=== PATIENT | male | born 1965 | race African-American/Black ===

== ENCOUNTER 2016-09-10 23:44 | Observation (INO) | payer MEDICAID, OTHER ==
[~2016-09-10] VITALS: Ht 167.6 cm; Wt 70.9 kg
[~2016-09-10 23:44] MED LIST: BACT800T5 PO; BENA25TA8 PO; MEDR4PAK3 PO
[2016-09-11] VITALS (10 sets, daily range): BP systolic 127–167; BP diastolic 80–97; PULSE 74–100; RESP 16–20; TEMP 96.6–99.5; O2SAT 87–99
[2016-09-11] MEDS ORDERED: TIMO5SOL EACH EYE (00:15)
[2016-09-11] MEDS ORDERED: AMLO10 PO (00:15)
[2016-09-11] MEDS ORDERED: LATA.005%O EACH EYE (00:15)
[2016-09-11] MEDS ORDERED: BACL10TA PO (00:16)
[2016-09-11] MEDS ORDERED: HYDR-3533 PO (00:16)
[2016-09-11] MEDS ORDERED: ONDANSETRON HCL 4 MG/2 ML VIAL IV ONE (00:30)
[2016-09-11] MEDS ORDERED: SODIUM CHLOR 0.9% 1000 ML INJ 1,000 ML IV ONE (00:30)
--- NOTE | 2016-09-11 01:07 | RADRPT ---
EXAM DATE/TIME: 09/11/2016 00:30 [facility] COMPARISON: No previous studies available for comparison. INDICATIONS : Chest apin. MEDICAL HISTORY : None. SURGICAL HISTORY : None. ENCOUNTER: Initial ACUITY: 1 day PAIN SCORE: 0/10 LOCATION: Bilateral chest FINDINGS: Single AP view of the chest. The lungs are clear. Cardiomediastinal silhouette within normal limits. No evidence of pleural effusion or pneumothorax. CONCLUSION: No acute cardiopulmonary disease identified. Harjit Patel MD on September 11, 2016 at 1:05 Board Certified Radiologist. This report was verified electronically.
[2016-09-11 01:17] LABS: AUTOMATED NEUTROPHIL # 0.9 TH/MM3 (1.8-7.7); BASOPHIL # 0.1 TH/MM3 (0-0.2); EOSINOPHIL # 0.1 TH/MM3 (0-0.4); EOSINOPHIL % 1.6 % (0.0-4.0); HEMATOCRIT 41.9 % (39.0-51.0); HEMO FLAGS AUTO DIFF; LYMPH % 57.9 % (9.0-44.0); LYMPHOCYTE # 2.3 TH/MM3 (1.0-4.8); MEAN CORPUSCULAR HEMOGLOBIN 33.8 PG (27.0-34.0); MEAN CORPUSCULAR HGB CONC 33.8 % (32.0-36.0); MONO % 16.1 % (0.0-8.0); NEUT % 22.4 % (16.0-70.0); PLATELET COUNT 101 TH/MM3 (150-450); RED BLOOD COUNT 4.19 MIL/MM3 (4.50-5.90); RED CELL DISTRIBUTION WIDTH 14.5 % (11.6-17.2)
[2016-09-11 01:32] LABS: BLOOD, URINE NEG (NEG); GLUCOSE,URINE NEG (NEG); KETONE, URINE NEG (NEG); MUCUS URINE FEW /lpf (OCC); NITRITE,URINE NEG (NEG); URINE COLOR LIGHT-YELLOW (YELLW/STRAW)
[2016-09-11 01:33] LABS: COMMENT (UR) CULT NOT INDICATED; CULTURE IF INDICATED CULT NOT INDICATED
[2016-09-11 01:37] LABS: ALT (GPT) 337 U/L (12-78); ANION GAP 15 MEQ/L (5-15); AST (GOT) 437 U/L (15-37); BICARBONATE 23.6 MEQ/L (21.0-32.0); BLOOD UREA NITROGEN 5 MG/DL (7-18); CHLORIDE 103 MEQ/L (98-107); GLOMERULAR FILTRATION RATE 110 ML/MIN (>89); POTASSIUM 3.4 MEQ/L (3.5-5.1); SODIUM (NA) 142 MEQ/L (136-145)
[2016-09-11 01:38] LABS: AMPHETAMINE, URINE NEG (NEG); BARBITURATES, URINE NEG (NEG); COCAINE, URINE NEG (NEG)
[2016-09-11 01:39] LABS: ACETAMINOPHEN LESS THAN 2.0 MCG/ML (10.0-30.0); ALKALINE PHOSPHATASE 107 U/L (45-117); TOTAL BILIRUBIN ADULT 0.9 MG/DL (0.2-1.0)
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
[2016-09-11 01:56] LABS: ATYPICAL LYMPHOCYTES 15 % (0-0); BANDS 1 % (0-6); BASOPHILS 1 % (0-2); NEUTROPHIL # MANUAL DIFF 1.2 TH/MM3 (1.8-7.7); POLYS (SEG NEUTROPHILS) 28 % (16-70); WBC DIFF SAMPLE 100
[2016-09-11 01:57] LABS: PLATELET ESTIMATE SMEAR LOW (NORMAL); PLATELET MORPHOLOGY NORMAL (NORMAL); SCAN/DIFF FINAL DIFF MANUAL
[2016-09-11] MEDS ORDERED: THIAMINE INJ 100 MG in SODIUM CHLORIDE 0.9% INJ 100 ML IV ONE (02:00)
[2016-09-11 02:01] LABS: CREATINE KINASE 251 U/L (39-308)
[2016-09-11 02:14] LABS: CKMB 0.7 NG/ML (0.5-3.6)
--- NOTE | 2016-09-11 02:25 | RADRPT ---
EXAM DATE/TIME: 09/11/2016 02:12 [facility] COMPARISON: No previous studies available for comparison. INDICATIONS : Syncope RADIATION DOSE: 36.13 CTDIvol (mGy) MEDICAL HISTORY : Hypertension. SURGICAL HISTORY : None. ENCOUNTER: Initial ACUITY: 1 day PAIN SCALE: 0/10 LOCATION: cranial TECHNIQUE: Multiple contiguous axial images were obtained of the head. Using automated exposure control and adj ustment of the mA and/or kV according to patient size, radiation dose was kept as low as reasonably a chievable to obtain optimal diagnostic quality images. FINDINGS: CEREBRUM: The ventricles are normal for age. No evidence of midline shift, mass lesion, hemorrhage or acute in farction. No extra-axial fluid collections are seen. POSTERIOR FOSSA: The cerebellum and brainstem are intact. The 4th ventricle is midline. The cerebellopontine angle i s unremarkable. EXTRACRANIAL: The visualized portion of the orbits is intact. SKULL: The calvaria is intact. No evidence of skull fracture. CONCLUSION: No acute intracranial findings. Harjit Patel MD on September 11, 2016 at 2:17 Board Certified Radiologist. This report was verified electronically.
[2016-09-11] MEDS ORDERED: ONDANSETRON HCL 4 MG/2 ML VIAL IVP PRN (03:00)
[2016-09-11] MEDS ORDERED: SODIUM CHLORIDE 0.9% FLUSH 5 ML FLUSH FLUSH PRN (03:00)
[2016-09-11] MEDS ORDERED: NALOXONE HCL 0.4 MG/ML AMP IV PRN (03:00)
[2016-09-11] MEDS ORDERED: ACETAMINOPHEN 325 MG TAB PO PRN (03:00)
[2016-09-11] MEDS ORDERED: cloNIDine HCL 0.1 MG TAB PO PRN (07:30)
[2016-09-11] MEDS ORDERED: LORazepam 2 MG/ML VIAL IV PUSH PRN ×3 (07:30→08:30)
[2016-09-11] MEDS ORDERED: LORazepam 2 MG TAB PO PRN (07:30)
[2016-09-11] MEDS ORDERED: FLUMAZENIL 0.5 MG/5 ML VIAL IV PUSH PRN (07:30)
[2016-09-11] MEDS ORDERED: POTASSIUM CHLORIDE 10 MEQ CONTROLLED RELEASE TAB PO ONE (09:00)
[2016-09-11] MEDS: SODIUM CHLORIDE 0.9% FLUSH 5 ML FLUSH FLUSH SCH ×2 (09:09→21:00)
[2016-09-11] MEDS: DOCUSATE SODIUM 100 MG CAP PO SCH ×2 (09:09→21:13)
[2016-09-11] MEDS: FOLIC ACID 1 MG TAB PO SCH (09:09)
[2016-09-11] MEDS: NS + KCL 20 MEQ INJ 1,000 ML IV SCH ×2 (09:10→21:14)
--- NOTE | 2016-09-11 09:28 | HHI.HP ---
HPI Service [facility] Primary Care Physician No Primary Care Physician Admission Diagnosis Syncope Diagnoses: Chief Complaint: Syncope Travel History International Travel<30 Days: No Contact w/Intl Traveler <30 Da: No Traveled to Known Affected Are: No History of Present Illness 51-year-old male with past medical history of HTN, glaucoma, chronic back pain who presented after syncopal episode. The patient states that after dinner yesterday he began sweating, and lost consciousness. He remembers coming back to when the paramedics had arrived. He denies feeling any dizziness, weakness, nausea, pain. He does have occasional headaches, states these are chronic when it rains. He has been out of his blood pressure medication for the past few weeks. He does drink about six 24 ounce beers daily. He states he had previously been on [place] for back pain, but has been off of that. He denies any other substance use. He was incontinent of stool and urine during the syncopal episode. His sister did pass away last week and he has been sad since then, but denies any suicidal ideation. No abdominal pain. Review of Systems Except as stated in HPI: all other systems reviewed are Neg Past Family Social History Past Medical History Hypertension Glaucoma Degenerative disc disease/chronic back pain Past Surgical History None Reported Medications Baclofen 10 Mg Tab 10 Mg PO TID Xalatan Opth Drops (Latanoprost) 0.005% Drops 1 Drop EACH EYE HS Timolol Opth Drops 0.25 % Soln 1 Drop EACH EYE BID Norvasc (Amlodipine Besylate) 10 Mg Tab 10 Mg PO DAILY Allergies: Coded Allergies: Codeine (Verified Allergy, Severe, 09/11/16) RASH Penicillin (Verified Allergy, Intermediate, Rash, 09/11/16) Active Ordered Medications Current Medications Medications (Trade) Dose Ordered Sig/Jose Route Start Time Stop Time Status Last Admin (NS Flush) 2 ml UNSCH PRN FLUSH 09/11/16 03:00 (NS Flush) 2 ml BID FLUSH 09/11/16 09:00 09/11/16 09:09 (Tylenol) 650 mg Q4H PRN PO 09/11/16 03:00 (Zofran Inj) 4 mg Q6H PRN IVP 09/11/16 03:00 (Colace) 100 mg Q12HR PO 09/11/16 09:00 09/11/16 09:09 Naloxone HCl 0.4 mg 0.4 mg UNSCH PRN IV 09/11/16 03:00 (NS + KCl 20 Meq Inj) 1,000 ml @ 84 mls/hr [id number] IV 09/11/16 08:00 09/11/16 09:10 (Folate) 1 mg DAILY PO 09/11/16 09:00 09/16/16 08:59 09/11/16 09:09 (Vitamin B1) 100 mg DAILY PO 09/12/16 09:00 (Theragran M Tab) 1 tab DAILY PO 09/11/16 09:00 09/16/16 08:59 (Catapres) 0.1 mg Q6H PRN PO 09/11/16 07:30 (Romazicon Inj) 0.2 mg Q1M PRN IV PUSH 09/11/16 07:30 (Ativan) 1 mg Q4H PRN PO 09/11/16 07:30 (Ativan) 2 mg Q2H PRN PO 09/11/16 07:30 (Ativan Inj) 2 mg Q1H PRN IV PUSH 09/11/16 07:30 (Ativan Inj) 2 mg Q15M PRN IV PUSH 09/11/16 07:30 (Ativan Inj) 1 mg Q6H PRN IV PUSH 09/11/16 08:30 Family History Mother had glaucoma Social History Daily drinking Smokes 12 cigarettes a day Denies any drug abuse Does plaster and stucco work Physical Exam Vital Signs Vital Signs Date Time Temp Pulse Resp B/P Pulse Ox O2 Delivery O2 Flow Rate FiO2 09/11/16 09:05 79 18 163/97 97 Room Air 09/11/16 05:24 20 99 09/11/16 05:23 82 20 127/80 99 09/11/16 00:07 98.1 74 16 166/90 95 Room Air 09/11/16 00:02 166/90 Physical Exam GENERAL: Well-developed well-nourished. In no acute distress. SKIN: Warm and dry. No lesions noted. HEENT: Normocephalic. Pupils equal and round. Mucous membranes pink and moist. CARDIOVASCULAR: Regular rate and rhythm. No murmur appreciated. RESPIRATORY: No accessory muscle use. Clear to auscultation. Breath sounds equal bilaterally. GASTROINTESTINAL: Abdomen soft, non-tender, nondistended. Bowel sounds x4. MUSCULOSKELETAL: No obvious deformities. No clubbing or cyanosis. No edema. NEUROLOGICAL: Awake and alert. No focal neurological deficits. Moves upper and lower extremities spontaneously. Normal speech. PSYCHIATRIC: Appropriate mood and affect; insight and judgment normal. Denies SI. Laboratory Laboratory Tests Test 09/11/16 09/11/16 01:00 01:05 White Blood Count 4.0 Red Blood Count 4.19 Hemoglobin 14.2 Hematocrit 41.9 Mean Corpuscular Volume 100.0 Mean Corpuscular Hemoglobin 33.8 Mean Corpuscular Hemoglobin 33.8 Concent Red Cell Distribution Width 14.5 Platelet Count 101 Mean Platelet Volume 8.7 Neutrophils (%) (Auto) 22.4 Lymphocytes (%) (Auto) 57.9 Monocytes (%) (Auto) 16.1 Eosinophils (%) (Auto) 1.6 Basophils (%) (Auto) 2.0 Neutrophils # (Auto) 0.9 Lymphocytes # (Auto) 2.3 Monocytes # (Auto) 0.6 Eosinophils # (Auto) 0.1 Basophils # (Auto) 0.1 CBC Comment AUTO DIFF Differential Total Cells 100 Counted Neutrophils % (Manual) 28 Band Neutrophils % 1 Lymphocytes % 44 Monocytes % 11 Basophils % 1 Neutrophils # (Manual) 1.2 Differential Comment FINAL DIFF MANUAL Atypical Lymphocytes 15 Platelet Estimate LOW Platelet Morphology Comment NORMAL Sodium Level 142 Potassium Level 3.4 Chloride Level 103 Carbon Dioxide Level 23.6 Anion Gap 15 Blood Urea Nitrogen 5 Creatinine 0.88 Estimat Glomerular Filtration 110 Rate Random Glucose 110 Calcium Level 8.5 Total Bilirubin 0.9 Aspartate Amino Transf 437 (AST/SGOT) Alanine Aminotransferase 337 (ALT/SGPT) Alkaline Phosphatase 107 Total Creatine Kinase 251 Creatine Kinase MB 0.7 Troponin I LESS THAN 0.02 B-Type Natriuretic Peptide 5 Total Protein 7.5 Albumin 3.9 Lipase 717 Salicylates Level 2.4 Acetaminophen Level LESS THAN 2.0 Ethyl Alcohol Level 359 Urine Color LIGHT-YELLOW Urine Turbidity CLEAR Urine pH 6.0 Urine Specific [place] 1.006 Urine Protein NEG Urine Glucose (UA) NEG Urine Ketones NEG Urine Occult Blood NEG Urine Nitrite NEG Urine Bilirubin NEG Urine Urobilinogen LESS THAN 2.0 Urine Leukocyte Esterase NEG Urine RBC LESS THAN 1 Urine WBC LESS THAN 1 Urine Mucus FEW Microscopic Urinalysis Comment CULT NOT INDICATED Urine Opiates Screen NEG Urine Barbiturates Screen NEG Urine Amphetamines Screen NEG Urine Benzodiazepines Screen NEG Urine Cocaine Screen NEG Urine Cannabinoids Screen NEG Result Diagram: 09/11/16 0100 09/11/16 0100 Imaging Last Impressions Head CT 09/11/16 0134 Signed Impressions: Service Date/Time: Sunday, September 11, 2016 02:12 - CONCLUSION: No acute intracranial findings. Harjit Patel MD Chest X-Ray 09/11/16 0021 Signed Impressions: Service Date/Time: Sunday, September 11, 2016 00:30 - CONCLUSION: No acute cardiopulmonary disease identified. Harjit Patel MD Assessment and Plan Assessment and Plan 51-year-old male with past medical history of HTN, glaucoma, chronic back pain who presented after syncopal episode Syncope: Alcohol level 359 at admission, and should definitely have caused/ contributed to his syncopal episode. Rule out other underlying medical etiologies. EKG reviewed, NSR. Head CT unremarkable. Check serial cardiac enzymes. Check EEG with incontinence. Check echocardiogram. IVF. Monitor on telemetry. Narcotic Withdrawal? Hypertension: Uncontrolled. Resume previous dose of amlodipine. Clonidine as needed. Monitor. Alcohol abuse: Daily use. LFTs elevated and mild thrombocytopenia. Counseled on cessation importance of outpatient follow-up. CIWA protocol with rally pack. Seizure precautions. Elevated lipase: Probably chronic from alcohol as above. No complaints of abdominal pain. Follow-up level. Hypokalemia: Replace orally and by IV supplement. Check magnesium level. Glaucoma: Chronic, stable. Resume home eyedrops. DVT prophylaxis: SCDs Written by Palmer Chaudhry, acting as scribe for Dr. Stoner on 09/11/16 at 09:27. All or portions of this note were transcribed by scribe []. I, Dr. Adithya Stoner personally performed the history, physical exam, and medical decision making; and confirmed the accuracy of the information in the transcribed note. Authenticated by Dr. Adithya Stoner on 09/11/16 at 15:10. Discussed Condition With Patient, ED Palmer Villasenor Sep 11, 2016 09:28 Adithya Stoner MD Sep 11, 2016 15:10
[2016-09-11] MEDS: MULTIVITAMINS/MINERALS THERAPEUTIC TAB PO SCH (09:40)
[2016-09-11] MEDS: LORazepam 1 MG TAB PO PRN ×3 (12:02→22:24)
[2016-09-11 15:22] LABS: MAGNESIUM 1.7 MG/DL (1.5-2.5)
[2016-09-11 15:25] LABS: CREATINE KINASE 189 U/L (39-308)
--- NOTE | 2016-09-11 17:55 | EC ---
Study Study Date:09/11/2016 STUDY CONCLUSIONS SUMMARY LEFT VENTRICLE: The cavity size was normal. Wall thickness was normal. Systolic function was normal. The estimated ejection fraction was 60%. Wall motion was normal; there were no regional wall motion abnormalities. If LV function is below 40, please consider prescribing an ACEI or ARB or document rationale for non-use. PROCEDURE DATA STUDY STATUS: Elective. Procedure: Transthoracic echocardiography. Image quality was good. Scanning was performed from the parasternal, apical, and subcostal acoustic windows. Study completion: The patient tolerated the procedure well. Transthoracic echocardiography. M-mode, complete 2D, complete spectral Doppler, and color Doppler. Height: Height: 66in. Weight: Weight: 155.7lb. Body mass index: BMI: 25.2kg/m^2. Body surface area: BSA: 1.8m^2. Patient status: Inpatient. CARDIAC ANATOMY LEFT VENTRICLE: The cavity size was normal. Wall thickness was normal. Systolic function was normal. The estimated ejection fraction was 60%. Wall motion was normal; there were no regional wall motion abnormalities. AORTIC VALVE: Trileaflet; normal thickness leaflets. Doppler: Transvalvular velocity was within the normal range. There was no stenosis. No regurgitation. Valve area: 2.17cm^2(VTI). Indexed valve area: 1.21cm^2/m^2 (VTI). Valve area: 1.8cm^2 (Vmax). Indexed valve area: 1cm^2/m^2 (Vmax). Mean gradient: 3mm Hg (S). AORTA: Aortic root: The aortic root was normal in size. MITRAL VALVE: Structurally normal valve. Doppler: Transvalvular velocity was within the normal range. There was no evidence for stenosis. Trace regurgitation. LEFT ATRIUM: The atrium was normal in size. RIGHT VENTRICLE: The cavity size was normal. Wall thickness was normal. PULMONIC VALVE: Doppler: Transvalvular velocity was within the normal range. There was no evidence for stenosis. No regurgitation. TRICUSPID VALVE: Structurally normal valve. Doppler: Transvalvular velocity was within the normal range. Trace regurgitation. PULMONARY ARTERY: The main pulmonary artery was normal-sized. Systolic pressure was within the normal range. RIGHT ATRIUM: The atrium was normal in size. PERICARDIUM: There was no pericardial effusion. SYSTEMIC VEINS: Inferior vena cava: The vessel was normal in size. Patient weight: 155.7lb _Ejection fraction:_ 65-75% _Fractional shortening:_ 32% up to 5Kg 5-11.5Kg 11.6-22.9Kg 23-45Kg 45-57Kg Aortic Root 7-13 <17 13-22 17-27 17-27 LA diam 6-13 <23 24-38 33-47 37-40 RVID 10-17 7-15 7-15 7-18 8-17 LVIDd 12-22 <32 24-38 33-47 37-40 LVPW 2-4 3-6 5-7 6-8 7-8 IVS 2-4 3-6 5-7 6-8 7-8 BASIC MEASUREMENTS ADULT NORMAL Left ventricle LV internal dimension, ED, chordal 50.9 mm 43-52 level, PLAX LV internal dimension, ES, chordal 34.8 mm 23-38 level, PLAX Fractional shortening, chordal level, 32 % >29 PLAX LV posterior wall thickness, ED 8.89 mm IVS/LVPW ratio, ED 1.01 <1.3 Ventricular septum Septal thickness, ED 8.96 mm Aortic valve Leaflet separation 23 mm 15-26 Aorta Root diameter, ED 29 mm Left atrium Anterior-posterior dimension 36 mm Anterior-posterior dimension index 2 cm/m^2 <2.2 BASIC MEASUREMENTS ADULT NORMAL Aortic valve Leaflet separation 23 mm 15-26 DOPPLER MEASUREMENTS ADULT NORMAL Main pulmonary artery Pressure, S 30 mm Hg =30 Aortic valve Peak velocity, S 127 cm/s Mean velocity, S 84.5 cm/s VTI, S 20.7 cm Mean gradient, S 3 mm Hg Valve area, VTI 2.17 cm^2 Valve area index, VTI 1.21 cm^2/m^2 Valve area, Vmax 1.8 cm^2 Valve area index, Vmax 1 cm^2/m^2 Mitral valve Peak E-wave velocity 48.9 cm/s Peak A-wave velocity 51.3 cm/s Deceleration time *232 ms 150-230 Peak E/A ratio 1 Tricuspid valve Regurgitant peak velocity 258 cm/s Peak RV-RA gradient, S 27 mm Hg Maximal regurgitant velocity 258 cm/s Systemic veins Estimated CVP 5 mm Hg Right ventricle RV pressure, S *32 mm Hg <30 Pulmonic valve Peak velocity, S 63.2 cm/s LEGEND: Mean values are shown as u=mean value. Asterisk (*) sotelo values outside specified normal range. Prepared and signed by Odalys Street [id number]
--- NOTE | 2016-09-11 19:53 | EKG ---
Date Performed: 09/11/2016 Time Performed: 01:57:03 PTAGE: 51 years EKG: Sinus rhythm POSSIBLE LEFT ATRIAL ENLARGEMENT POSSIBLE LEFT VENTRICULAR HYPERTROPHY ABNORMAL ECG NO PREVIOUS TRACING DOCTOR: Odalys Srteet Interpretating Date/Time 09/11/2016 19:52:21
--- NOTE | 2016-09-11 19:55 | MG ---
cc: YAMILETH COE M.D. Lab No: Date: 09/11/2016 Age: Sex: M Race: REQUESTING PHYSICIAN Dr. Chaudhry. An EEG was obtained on this 51-year-old patient with history of decreased responsiveness, apparently in some relationship to alcohol. MEDICATIONS Vitamins. DESCRIPTION The patient is awake and asleep. This EEG shows background of 7-8 per second activity in the central and posterior head regions. There are beta rhythms diffusely. Photic stimulation disclosed no significant change. There are some sharp waves bilaterally but no paroxysmal discharge. The patient seems mostly awake. Hyperventilation disclosed no significant changes. Later on the patient drowses. The tracing remains symmetrical. Photic stimulation was unremarkable. INTERPRETATION Mildly abnormal EEG because of mild intermixed slowing suggesting a mild diffuse disturbance of cerebral function but no epileptiform features present. MD AMANDA Bowles/KK /7:43 PM /7:51 PM
[2016-09-11] MEDS: TIMOLOL MALEATE 0.25% OPHT SOLN 5 ML BTL EACH EYE SCH (21:00)
[2016-09-11] MEDS ORDERED: LATANOPROST 0.005% OPHT SOLN 2.5 ML BTL EACH EYE SCH (21:00)
[2016-09-12 02:17] VITALS: PULSE 76
[2016-09-12 04:18] VITALS: BP 156/85; PULSE 74; RESP 20; TEMP 98.4; O2SAT 98
[2016-09-12 06:53] LABS: AUTOMATED NEUTROPHIL # 1.9 TH/MM3 (1.8-7.7); BASOPHIL # 0.1 TH/MM3 (0-0.2); BASOPHIL % 2.2 % (0.0-2.0); EOSINOPHIL # 0.1 TH/MM3 (0-0.4); HEMATOCRIT 42.3 % (39.0-51.0); LYMPH % 32.6 % (9.0-44.0); LYMPHOCYTE # 1.3 TH/MM3 (1.0-4.8); MEAN CORPUSCULAR HEMOGLOBIN 33.7 PG (27.0-34.0); MEAN CORPUSCULAR HGB CONC 34.3 % (32.0-36.0); MONO % 16.5 % (0.0-8.0); NEUT % 46.7 % (16.0-70.0); PLATELET COUNT 89 TH/MM3 (150-450); RED BLOOD COUNT 4.32 MIL/MM3 (4.50-5.90); RED CELL DISTRIBUTION WIDTH 14.5 % (11.6-17.2)
[2016-09-12 06:59] LABS: HEMO FLAGS AUTO DIFF
[2016-09-12 07:14] LABS: ALT (GPT) 308 U/L (12-78); ANION GAP 12 MEQ/L (5-15); AST (GOT) 326 U/L (15-37); BICARBONATE 26.5 MEQ/L (21.0-32.0); BLOOD UREA NITROGEN 5 MG/DL (7-18); CHLORIDE 100 MEQ/L (98-107); GLOMERULAR FILTRATION RATE 129 ML/MIN (>89); MAGNESIUM 1.8 MG/DL (1.5-2.5); SODIUM (NA) 138 MEQ/L (136-145)
[2016-09-12 07:16] LABS: ALKALINE PHOSPHATASE 114 U/L (45-117); CREATINE KINASE 156 U/L (39-308); TOTAL BILIRUBIN ADULT 1.8 MG/DL (0.2-1.0)
[2016-09-12 07:47] LABS: SCAN/DIFF AUTO DIFF CONFIRMED
[2016-09-12 07:52] VITALS: BP 154/92; PULSE 80; RESP 16; TEMP 99; O2SAT 97
[2016-09-12] MEDS ORDERED: THIAMINE HCL 100 MG TAB PO SCH (09:00)
--- NOTE | 2016-09-12 09:09 | HHI.PR ---
Subjective Remarks Follow up for syncope, alcohol intoxication. The patient reports feeling well today. Denies any syncopal events overnight. Denies any lightheadedness or dizziness. Ambulating without difficulty. Denies any tremors, nausea, or abdominal pain. He does not feel he is withdrawing from alcohol. He wants to go home. Objective Vitals Vital Signs Date Time Temp Pulse Resp B/P Pulse Ox O2 Delivery O2 Flow Rate FiO2 09/12/16 07:52 99.0 80 16 154/92 97 09/12/16 04:18 98.4 74 20 156/85 98 09/12/16 02:17 76 09/11/16 23:42 98.8 94 20 152/88 98 09/11/16 19:46 99.5 100 20 165/80 97 09/11/16 17:47 84 09/11/16 15:36 96.6 85 18 167/96 87 09/11/16 11:59 79 18 162/97 98 Room Air I/O 09/11/16 09/11/16 09/11/16 09/12/16 09/12/16 09/12/16 07:00 15:00 23:00 07:00 15:00 23:00 Output Total 1300 ml 600 ml Balance -1300 ml -600 ml Output Urine Total 1300 ml 600 ml Result Diagram: 09/12/16 0616 09/12/16 0616 Imaging Last Impressions Head CT 09/11/16 0134 Signed Impressions: Service Date/Time: Sunday, September 11, 2016 02:12 - CONCLUSION: No acute intracranial findings. Harjit Patel MD Chest X-Ray 09/11/16 0021 Signed Impressions: Service Date/Time: Sunday, September 11, 2016 00:30 - CONCLUSION: No acute cardiopulmonary disease identified. Harjit Patel MD Objective Remarks GENERAL: Well-developed, well-nourished middle aged male patient in [facility]. SKIN: Warm and dry. HEAD: Atraumatic. Normocephalic. EYES: Pupils equal and round. No scleral icterus. No injection or drainage. ENT: No nasal bleeding or discharge. Mucous membranes pink and moist. NECK: Trachea midline. No JVD. CARDIOVASCULAR: Regular rate and rhythm. RESPIRATORY: No accessory muscle use. Clear to auscultation. Breath sounds equal bilaterally. GASTROINTESTINAL: Abdomen soft, non-tender, nondistended. Hepatic and splenic margins not palpable. MUSCULOSKELETAL: Extremities without clubbing, cyanosis, or edema. No obvious deformities. NEUROLOGICAL: Awake and alert. No obvious cranial nerve deficits. Motor grossly within normal limits. 5/5 muscle strength in the arms and legs. Normal speech. PSYCHIATRIC: Appropriate mood and affect; insight and judgment normal. Medications and IVs Current Medications Medications (Trade) Dose Ordered Sig/Jose Route Start Time Stop Time Status Last Admin (NS Flush) 2 ml UNSCH PRN FLUSH 09/11/16 03:00 (NS Flush) 2 ml BID FLUSH 09/11/16 09:00 09/11/16 09:09 (Tylenol) 650 mg Q4H PRN PO 09/11/16 03:00 (Zofran Inj) 4 mg Q6H PRN IVP 09/11/16 03:00 (Colace) 100 mg Q12HR PO 09/11/16 09:00 09/11/16 21:13 Naloxone HCl 0.4 mg 0.4 mg UNSCH PRN IV 09/11/16 03:00 (NS + KCl 20 Meq Inj) 1,000 ml @ 84 mls/hr [id number] IV 09/11/16 08:00 09/11/16 21:14 (Folate) 1 mg DAILY PO 09/11/16 09:00 09/16/16 08:59 09/11/16 09:09 (Vitamin B1) 100 mg DAILY PO 09/12/16 09:00 (Theragran M Tab) 1 tab DAILY PO 09/11/16 09:00 09/16/16 08:59 09/11/16 09:40 (Catapres) 0.1 mg Q6H PRN PO 09/11/16 07:30 (Romazicon Inj) 0.2 mg Q1M PRN IV PUSH 09/11/16 07:30 (Ativan) 1 mg Q4H PRN PO 09/11/16 07:30 09/11/16 22:24 (Ativan) 2 mg Q2H PRN PO 09/11/16 07:30 (Ativan Inj) 2 mg Q1H PRN IV PUSH 09/11/16 07:30 (Ativan Inj) 2 mg Q15M PRN IV PUSH 09/11/16 07:30 (Ativan Inj) 1 mg Q6H PRN IV PUSH 09/11/16 08:30 (Xalatan 0.005% Opth Soln) 1 drop HS EACH EYE 09/11/16 21:00 09/11/16 21:00 (Timoptic 0.25% Opth Soln) 1 drop BID EACH EYE 09/11/16 21:00 09/11/16 21:00 (Pneumovax-23 Inj) 25 mcg ONCE ONCE IM 09/12/16 10:00 09/12/16 10:01 (Flu (Quadrivalent) Vaccine Inj) 0.5 ml ONCE ONCE IM 09/12/16 10:00 09/12/16 10:01 (Norvasc) 10 mg DAILY PO 09/11/16 09:45 09/11/16 11:53 Urinary Catheter: No Vascular Central Line Catheter: No A/P Assessment and Plan 51-year-old male with past medical history of HTN, glaucoma, chronic back pain who presented after syncopal episode Syncope: Alcohol level 359 at admission, suspect etiology of patient's syncopal episode. Rule out other underlying medical etiologies. EKG reviewed, NSR. Head CT unremarkable. ACS ruled out with negative serial cardiac enzymes. Checked EEG with incontinence, negative for epileptiform activity. Echocardiogram normal with EF 60%. Given IVF. Monitor on telemetry. Patient back to normal, stable for discharge. Hypertension: Uncontrolled. Resumed previous dose of amlodipine. Clonidine as needed. Monitor. Alcohol abuse: Daily use. LFTs elevated and mild thrombocytopenia. Counseled on cessation importance of outpatient follow-up. [facility] protocol with rally pack. Seizure precautions. Discharge on Librium taper. Elevated lipase: Probably chronic from alcohol as above. No complaints of abdominal pain. Repeat lipase 276, wnl. Elevated LFTs: suspect secondary to alcohol abuse. Hepatitis panel negative in 2010, however will repeat. Check abdominal U/S. Hypokalemia: Replace orally and by IV supplement. Magnesium level 1.8. Glaucoma: Chronic, stable. Resume home eyedrops. DVT prophylaxis: SCDs Written by Nadiya Nettles, acting as scribe for Dr. Stoner on 09/12/16 at 09: 09. All or portions of this note were transcribed by scribe []. I, Dr. Adithya Stoner personally performed the history, physical exam, and medical decision making; and confirmed the accuracy of the information in the transcribed note. Authenticated by Dr. Adithya Stoner on 09/12/16 at 14:05. Discharge Planning Discharge today if liver U/S unremarkable. Discharge patient to home Condition on discharge: Improved Regular Diet as tolerated Ad Quyen activity Rx written: Norvasc 5mg daily, Librium taper Follow-up with primary care physician within 1 week Nadiya Nettles PA-C Sep 12, 2016 09:09 Adithya Stoner MD Sep 12, 2016 14:05
[2016-09-12] MEDS ORDERED: CHLO25CA2 PO (09:11)
--- NOTE | 2016-09-12 09:11 | HHI.DCPOC ---
Discharge Care Plan Diagnosis: (1) Syncope (2) Alcohol intoxication Goals to Promote Your Health * To prevent worsening of your condition and complications * To maintain your health at the optimal level Directions to Meet Your Goals Take your medications as prescribed Follow your dietary instruction Follow activity as directed Keep your appointments as scheduled Take your immunizations and boosters as scheduled If your symptoms worsen call your PCP, if no PCP go to Urgent Care Center or Emergency Room Smoking is Dangerous to Your Health. Avoid second hand smoke Call the 24-hour hour crisis hotline for domestic abuse at Nadiya Nettles PA-C Sep 12, 2016 09:11
[2016-09-12] MEDS ORDERED: VITA100T2 PO (09:12)
[2016-09-12] MEDS ORDERED: AMLO10 PO (09:12)
[2016-09-12] MEDS ORDERED: PNEUMOCOCCAL POLYVALENT INJ 25 MCG/0.5 ML SYR IM ONE (10:00)
[2016-09-12] MEDS ORDERED: INFLUENZA VIRUS VACCINE (QUADRIVALENT) 0.5 ML SYR IM ONE (10:00)
[2016-09-12] MEDS: FOLIC ACID 1 MG TAB PO SCH (10:31)
[2016-09-12] MEDS: DOCUSATE SODIUM 100 MG CAP PO SCH (10:31)
[2016-09-12] MEDS: MULTIVITAMINS/MINERALS THERAPEUTIC TAB PO SCH (10:32)
[2016-09-12] MEDS: TIMOLOL MALEATE 0.25% OPHT SOLN 5 ML BTL EACH EYE SCH (10:32)
[2016-09-12] MEDS: SODIUM CHLORIDE 0.9% FLUSH 5 ML FLUSH FLUSH SCH (10:34)
--- NOTE | 2016-09-12 11:36 | RADRPT ---
EXAM DATE/TIME: 09/12/2016 10:40 [place] COMPARISON: No previous studies available for comparison. INDICATIONS : Increased lab values. MEDICAL HISTORY : Hypertension. Glaucoma. SURGICAL HISTORY : None. ENCOUNTER: Initial ACUITY: 1 day PAIN SCORE: 0/10 LOCATION: Abdomen. MEASUREMENTS: LIVER: 14.6 cm length COMMON DUCT: 4 mm RIGHT KIDNEY: 11.6 x 4.9 x 5.6 cm SPLEEN: 9.1 cm length FINDINGS: LIVER: The liver is echogenic without ductal dilatation. COMMON DUCT: No intraluminal mass or stone vis ualized. GALLBLADDER: Contains no stones, demonstrates no wall thickening or pericholecystic fluid. PANCREAS: Minimal echogenicity is seen in the pancreas that could be calcifications. RIGHT KIDNEY: No hydronephrosis, stone or mass. SPLEEN: No focal lesion. CONCLUSION: Echogenic liver, questionable pancreatic calcifications. CT scan would be of benefit. Candido Mckay MD FACR on September 12, 2016 at 11:33 Board Certified Radiologist. This report was verified electronically.
[2016-09-12 11:54] VITALS: BP 168/107; PULSE 72; RESP 14; TEMP 98.3; O2SAT 97
[2016-09-12 12:35] VITALS: BP 186/116; PULSE 64; RESP 16; TEMP 98.2; O2SAT 98
[2016-09-12] MEDS: NS + KCL 20 MEQ INJ 1,000 ML IV SCH (12:46)
[2016-09-12 14:48] VITALS: BP 139/82; PULSE 82; RESP 16; TEMP 98.1; O2SAT 98
== END 2016-09-12 15:53 | disposition home or self-care (01) ==
LOC: NEPC 23:44 → NEDA 09-11 02:42 → NEDH 09-11 08:26 → NEPGCP 09-11 14:36
PROVIDERS: ADMIT Internal Medicine; ATTEND Internal Medicine
DX: R55 Syncope and collapse (principal); F10.129 Alcohol abuse with intoxication, unspecified; K85.20 Alcohol induced acute pancreatitis without necrosis or infection; I10 Essential (primary) hypertension; R74.8 Abnormal levels of other serum enzymes; H40.9 Unspecified glaucoma; F17.210 Nicotine dependence, cigarettes, uncomplicated; E87.6 Hypokalemia; Z88.0 Allergy status to penicillin; Z88.5 Allergy status to narcotic agent
CPT/HCPCS: 70450; 71010; 76705; 80053; 80074; 80307; 81001; 82550; 82552; 83690; 83735; 83880; 84100; 84484; 85007; 85025; 85027; 93005; 93306; 95819; 96361; 96365; 96375; 99285; G0378; J2405; J3411; J3480; J7030

== ENCOUNTER 2017-12-21 15:29 | Emergency (ER) | payer MEDICAID ==
[~2017-12-21] VITALS: Ht 167.6 cm; Wt 65.0 kg
[~2017-12-21 15:29] MED LIST changes: +AMLO10 PO; +BACL10TA PO; -BACT800T5 PO; -BENA25TA8 PO; +CHLO25CA2 PO; +HYDR-3533 PO; +LATA.005%O EACH EYE; -MEDR4PAK3 PO; +TIMO5SOL EACH EYE; +VITA100T2 PO
[2017-12-21 15:44] VITALS: BP 159/91; PULSE 75; RESP 19; TEMP 99.8; O2SAT 98
[2017-12-21] MEDS ORDERED: TIMO0.255 EACH EYE (16:00)
[2017-12-21] MEDS ORDERED: AMLO5TAB2 PO (16:00)
[2017-12-21] MEDS ORDERED: LISI-515 PO ×2 (16:00)
[2017-12-21] MEDS ORDERED: HYDR-3583 PO (16:01)
[2017-12-21] MEDS ORDERED: diphenhydrAMINE HCL 50 MG/ML VIAL IV PUSH ONE (16:15)
[2017-12-21] MEDS ORDERED: methylPREDNISolone SOD SUCC 125 MG/2 ML VIAL IV PUSH ONE (16:15)
--- NOTE | 2017-12-21 16:15 | PD ---
HPI Chief Complaint: Allergic/Adverse Reaction Time Seen by Provider: 16:05 Travel History International Travel<30 days: No Contact w/Intl Traveler<30days: No Traveled to known affect area: No History of Present Illness HPI 52-year-old male with history of hypertension, presents emergency department for evaluation of swelling of his upper lip. Patient states he woke up 4 AM this morning. He took his lisinopril and went back to bed. When he woke up his upper lip was swollen. It has persisted throughout the day. He feels it may be getting a little worse. He denies any other sensation of oral swelling or his throat closing up. He denies any difficulty breathing. He started lisinopril approximately 4 months ago. Patient has no other symptoms to report at this time. He has no other allergies besides codeine and penicillin that he is aware of. PFSH Past Medical History Blood Disorders: No Cardiovascular Problems: Yes (HTN) Diminished Hearing: No Endocrine: No Glaucoma: Yes Genitourinary: No Hypertension: Yes Immune Disorder: No Musculoskeletal: No Neurologic: No Psychiatric: No Reproductive: No Respiratory: No Immunizations Current: Yes Past Surgical History Surgical History: No Previous Surgery Other Surgery: No Social History Tobacco Use: Yes (/ PPD) Substance Use: No Allergies-Medications (Allergen,Severity, Reaction): Coded Allergies: codeine (Unverified Allergy, Severe, 12/21/17) RASH penicillin G (Unverified Allergy, Intermediate, Rash, 12/21/17) Reported Meds & Prescriptions Reported Meds & Active Scripts Active Medrol Dosepak (Methylprednisolone) 4 Mg Dspk 4 Mg PO DIRECTED Per Pharmacist direction Reported Hydrocodone-Acetaminophen 10-325 mg Tab 1 Tab PO Q4H PRN Lisinopril 20 Mg Tab 20 Mg PO HS Amlodipine (Amlodipine Besylate) 5 Mg Tab 5 Mg PO DAILY Timoptic Opth Drops (Timolol Opth Drops) 0.25 % Soln 1 Drop EACH EYE BID Xalatan Opth Drops (Latanoprost) 0.005% Drops 1 Drop EACH EYE HS Review of Systems Except as stated in HPI: all other systems reviewed are Neg Physical Exam Narrative GENERAL: Well-nourished male patient, appears nontoxic and without distress SKIN: Focused skin assessment warm/dry. No erythema, rashes, or lesions. HEAD: Atraumatic. Normocephalic. EYES: Pupils equal and round. No scleral icterus. No injection or drainage. ENT: Moderate swelling of the upper lip. Mucosa pink and moist. No erythema or exudates. No uvular edema. No uvular, palatal, or tonsillar deviation. Airway patent. Nasal turbinates appear normal without nasal blood, purulent drainage or septal hematoma. NECK: Trachea midline. No JVD. No stridor. CARDIOVASCULAR: Regular rate and rhythm. No murmur appreciated. RESPIRATORY: No accessory muscle use. Clear to auscultation. Breath sounds equal bilaterally. GASTROINTESTINAL: Abdomen soft, non-tender, nondistended. Hepatic and splenic margins not palpable. MUSCULOSKELETAL: No obvious deformities. No clubbing. No cyanosis. No edema. NEUROLOGICAL: Awake and alert. No obvious cranial nerve deficits. Motor grossly within normal limits. Normal speech. PSYCHIATRIC: Appropriate mood and affect; insight and judgment normal. Data Data Last Documented VS Vital Signs Date Time Temp Pulse Resp B/P (MAP) Pulse Ox O2 Delivery O2 Flow Rate FiO2 12/21/17 15:44 99.8 75 19 159/91 (113) 98 Orders Orders Iv Access Insert/Monitor (12/21/17 16:10) Methylprednisolone So Succ Inj (Solumedr (12/21/17 16:15) Diphenhydramine Inj (Benadryl Inj) (12/21/17 16:15) Ed Discharge Order (12/21/17 18:44) [facility] Medical Decision Making Medical Screen Exam Complete: Yes Emergency Medical Condition: Yes Medical Record Reviewed: Yes Differential Diagnosis Bora inhibitor induced angioedema versus allergic reaction versus anaphylaxis Narrative Course 52-year-old male presents emergency department for evaluation of a swollen lip. Patient appears well. He has no other oral swelling or sensation of this. His vital signs are stable. I discussed the patient my attending physician. He is given Solu-Medrol and Benadryl. He will be observed here in the emergency department. 1843 swelling has reduced moderately. Patient has not gotten worse. I discussed the patient my attending physician. He would like to go home. Patient will be discharged home at this time. He is instructed to stop his lisinopril but continue his amlodipine. He does have an appointment with his physician this week. I advised that he let him know that he stopped lisinopril and discuss alternative options. He and his agreed return immediately with acute worsening of symptoms. Diagnosis Primary Impression: BORA inhibitor-aggravated angioedema Qualified Codes: T78.3XXA - Angioneurotic edema, initial encounter; T46.4X5A - Adverse effect of kgpoppgsqki-fdtwjpykct-wcedls inhibitors, initial encounter Referrals: Primary Care Physician call for appointment Patient Instructions: Angioedema (ED), General Instructions Additional Instructions: Stop taking lisinopril Continue amlodipine as prescribed See your primary care provider this week and let them know you are not taking it due to mouth swelling Continue benadryl 25mg by mouth every 6 hours for the next 24 hours Return to ED with acute worsening of symptoms Med/Other Pt SpecificInfo: Prescription(s) given Scripts Methylprednisolone Dosepak (Medrol Dosepak) 4 Mg Dspk 4 MG PO DIRECTED, #1 DSPK 0 Refills Per Pharmacist direction Prov: Zeinab Baird 12/21/17 Disposition: 01 DISCHARGE HOME Condition: Stable Zeinab Baird Dec 21, 2017 16:15
[2017-12-21] MEDS ORDERED: MEDR4PAK PO (18:47)
--- NOTE | 2017-12-21 20:03 | PD ---
Physical Exam Date Seen by Provider: Dec 21, 2017 Time Seen by Provider: 17:00 Narrative I, Dr. Jacobsen, have reviewed the advance practice practitioner's documentation and am in agreement, met with the patient face to face, made the diagnosis, and the medical decision making was done by me. *My assessment and Findings: Patient seen and evaluated with mid-level, please see mid-level note for further details. Patient is here with upper lip swelling , takes VITO inhibitor, started on its own, no new foods or other medications. He denies any trouble swallowing, shortness of breath, or any other issues. And evaluation of the patient shows no airway obstruction. Patient was given steroids IV in the ER, Benadryl, and was observed in the ER for several hours, continue to do well, requested to go home after close to 4 hours of observation , and at this point, patient is released. He should return for any worsening symptoms. He needs to stop taking his VITO inhibitor. Follow-up with primary care doctor. Data Data Last Documented VS Vital Signs Date Time Temp Pulse Resp B/P (MAP) Pulse Ox O2 Delivery O2 Flow Rate FiO2 12/21/17 15:44 99.8 75 19 159/91 (113) 98 Orders Orders Iv Access Insert/Monitor (12/21/17 16:10) Methylprednisolone So Succ Inj (Solumedr (12/21/17 16:15) Diphenhydramine Inj (Benadryl Inj) (12/21/17 16:15) Ed Discharge Order (12/21/17 18:44) [facility] Medical Record Reviewed: Yes Supervised Visit with WILFREDO: Yes Diagnosis Primary Impression: VITO inhibitor-aggravated angioedema Referrals: Primary Care Physician call for appointment Patient Instructions: General Instructions, Angioedema (ED) Departure Forms: Tests/Procedures Additional Instruction: Stop taking lisinopril Continue amlodipine as prescribed See your primary care provider this week and let them know you are not taking it due to mouth swelling Continue benadryl 25mg by mouth every 6 hours for the next 24 hours Return to ED with acute worsening of symptoms Scripts Methylprednisolone Dosepak (Medrol Dosepak) 4 Mg Dspk 4 MG PO DIRECTED, #1 DSPK 0 Refills Per Pharmacist direction Prov: Zeinab Baird 12/21/17 Disposition: 01 DISCHARGE HOME Condition: Stable Rubina Jacobsen MD Dec 21, 2017 20:03
== END 2017-12-21 19:03 | disposition home or self-care (01) ==
LOC: NEPE 15:29
DX: T78.3XXA Angioneurotic edema, initial encounter (principal); T46.4X5A Adverse effect of angiotensin-converting-enzyme inhibitors, initial encounter; I10 Essential (primary) hypertension; F17.200 Nicotine dependence, unspecified, uncomplicated
CPT/HCPCS: 96374; 96375; 99284; J1200; J2930